=== PATIENT | female | born 1990 ===

== ENCOUNTER → 2018-10-21 | Outpatient (REF) | payer OTHER ==
[2018-10-21 19:39] LABS: HEMATOCRIT 43.2 % (36.0-47.0); HEMOGLOBIN 14.8 g/dl (12.0-15.5); MEAN CORPUSCULAR HEMOGLOBIN 31.8 pg (27.0-33.0); MEAN CORPUSCULAR HGB CONC 34.3 g/dl (32.0-36.5); MEAN CORPUSCULAR VOLUME 92.9 fl (80.0-96.0); PLATELET COUNT, AUTOMATED 225 10^3/uL (150-450); RED BLOOD COUNT 4.65 10^6/uL (4.00-5.40); WHITE BLOOD COUNT 11.3 10^3/uL (4.0-10.0)
[2018-10-21 19:53] LABS: ALBUMIN 4.1 GM/DL (3.2-5.2); ALT/SGPT 23 U/L (12-78); BILIRUBIN,TOTAL 0.6 MG/DL (0.2-1.0); BLOOD UREA NITROGEN 7 MG/DL (7-18); CALCIUM LEVEL 9.3 MG/DL (8.5-10.1); CARBON DIOXIDE LEVEL 29 MEQ/L (21-32); CHLORIDE LEVEL 103 MEQ/L (98-107); CREATININE FOR GFR 0.76 MG/DL (0.55-1.30); FERRITIN 151 NG/ML (8-252); FREE T4 1.06 NG/DL (0.76-1.46); GLOMERULAR FILTRATION RATE > 60.0 (>60); GLUCOSE, FASTING 88 MG/DL (70-100); IRON (FE) 88 UG/DL (50-170); PERCENT SATURATION 33.5 % (13.2-45.0); POTASSIUM SERUM 3.7 MEQ/L (3.5-5.1); SODIUM LEVEL 141 MEQ/L (136-145); TOTAL IRON BINDING CAPACITY 263 UG/DL (250-450); TOTAL PROTEIN 7.1 GM/DL (6.4-8.2)
[2018-10-21 19:55] LABS: TOTAL 25(OH) VITAMIN D 41.7 NG/ML (30.0-100.0)
[2018-10-21 19:56] LABS: FOLATE > 24.0 NG/ML; VITAMIN B12 LEVEL 746 PG/ML
== END ==
LOC: M SFHCADAM 09:30
PROVIDERS: ATTEND Physician Assistant
DX: K50.90 Crohn's disease, unspecified, without complications (principal); R53.82 Chronic fatigue, unspecified; Z31.9 Encounter for procreative management, unspecified

== ENCOUNTER → 2019-02-14 | Outpatient (REF) | payer OTHER ==
[2019-02-14 13:19] LABS: HEMATOCRIT 41.4 % (36.0-47.0); MEAN CORPUSCULAR HEMOGLOBIN 31.8 pg (27.0-33.0); MEAN CORPUSCULAR HGB CONC 33.8 g/dl (32.0-36.5); MEAN CORPUSCULAR VOLUME 94.1 fl (80.0-96.0); PLATELET COUNT, AUTOMATED 206 10^3/uL (150-450); WHITE BLOOD COUNT 7.2 10^3/uL (4.0-10.0)
[2019-02-14 13:30] LABS: ALBUMIN 3.7 GM/DL (3.2-5.2); ALT/SGPT 21 U/L (12-78); BILIRUBIN,TOTAL 0.4 MG/DL (0.2-1.0); BLOOD UREA NITROGEN 10 MG/DL (7-18); C REACTIVE PROTEIN QUANTITATIV 1.85 MG/DL (0.00-0.30); CALCIUM LEVEL 8.6 MG/DL (8.5-10.1); CARBON DIOXIDE LEVEL 29 MEQ/L (21-32); CHLORIDE LEVEL 105 MEQ/L (98-107); CREATININE FOR GFR 0.78 MG/DL (0.55-1.30); GLOMERULAR FILTRATION RATE > 60.0 (>60); GLUCOSE, FASTING 92 MG/DL (70-100); IRON (FE) 90 UG/DL (50-170); POTASSIUM SERUM 3.8 MEQ/L (3.5-5.1); SODIUM LEVEL 140 MEQ/L (136-145); TOTAL IRON BINDING CAPACITY 265 UG/DL (250-450); TOTAL PROTEIN 6.7 GM/DL (6.4-8.2)
[2019-02-14 13:37] LABS: TOTAL 25(OH) VITAMIN D 48.6 NG/ML (30.0-100.0)
[2019-02-14 13:38] LABS: VITAMIN B12 LEVEL 319 PG/ML (247-911)
== END ==
LOC: M LABDRAWC 11:29
PROVIDERS: ATTEND Nurse Practitioner
DX: K50.90 Crohn's disease, unspecified, without complications (principal); E55.9 Vitamin D deficiency, unspecified

== ENCOUNTER → 2022-04-29 | Outpatient (REF) | payer BC ==
[2022-04-29 11:36] LABS: HEMOGLOBIN 13.7 g/dl (12.0-15.5); MEAN CORPUSCULAR HEMOGLOBIN 31.9 pg (27.0-33.0); MEAN CORPUSCULAR HGB CONC 33.4 g/dl (32.0-36.5); MEAN CORPUSCULAR VOLUME 95.3 fl (80.0-96.0); PLATELET COUNT, AUTOMATED 222 10^3/uL (150-450); WHITE BLOOD COUNT 10.1 10^3/uL (4.0-10.0)
[2022-04-29 12:03] LABS: ERYTHROCYTE SEDIMENTATION RATE 3 mm/hr (0-20)
[2022-04-29 12:23] LABS: ALBUMIN 3.5 GM/DL (3.2-5.2); ALT/SGPT 30 U/L (12-78); BILIRUBIN,TOTAL 0.5 MG/DL (0.2-1.0); BLOOD UREA NITROGEN 10 MG/DL (7-18); C REACTIVE PROTEIN QUANTITATIV 0.79 MG/DL (0.00-0.30); CALCIUM LEVEL 9.2 MG/DL (8.5-10.1); CARBON DIOXIDE LEVEL 28 MEQ/L (21-32); CHLORIDE LEVEL 103 MEQ/L (98-107); CREATININE FOR GFR 0.89 MG/DL (0.55-1.30); GLOMERULAR FILTRATION RATE > 60.0 (>60); GLUCOSE, FASTING 95 MG/DL (70-100); POTASSIUM SERUM 4.3 MEQ/L (3.5-5.1); SODIUM LEVEL 137 MEQ/L (136-145); TOTAL PROTEIN 6.5 GM/DL (6.4-8.2)
== END ==
LOC: M LABDRAWC 11:06
PROVIDERS: ATTEND Internal Medicine Gastroenterology
DX: K50.90 Crohn's disease, unspecified, without complications (principal)

== ENCOUNTER → 2025-05-14 | Outpatient (REF) | payer BC ==
[2025-05-14 13:53] LABS: PLATELET COUNT, AUTOMATED 238 10^3/uL (150-450)
[2025-05-14 13:59] LABS: ALT/SGPT 91 U/L (7.0-40); AST/SGOT 41 U/L (<34); C REACTIVE PROTEIN QUANTITATIV 0.69 MG/DL (<1.0); CALCIUM LEVEL 9.2 MG/DL (8.5-10.1); CARBON DIOXIDE LEVEL 28 MMOL/L (20-31); CHLORIDE LEVEL 101 MMOL/L (98-107); CREATININE FOR GFR 0.83 MG/DL (0.55-1.30); GLOMERULAR FILTRATION RATE > 90.0 (>60); POTASSIUM SERUM 4.3 MMOL/L (3.5-5.1); SODIUM LEVEL 139 MMOL/L (136-145)
== END ==
LOC: M LABDRAWC 12:29
PROVIDERS: ATTEND Student in an Organized Health Care Education/Training Program
DX: K50.90 Crohn's disease, unspecified, without complications (principal); K59.00 Constipation, unspecified